=== PATIENT | male | born 1955 | race Caucasian/White ===

== ENCOUNTER 2020-05-04 07:22 | Inpatient (IN) | payer OTHER ==
[2020-04-27 13:07] LABS: BASOPHILS % (AUTO) 0.4 % (0-1); EOSINOPHILS # (AUTO) 0.1 X10'3 (0-0.9); EOSINOPHILS % (AUTO) 1.3 % (0-6); LYMPHOCYTES # (AUTO) 1.4 X10'3 (1.1-4.8); LYMPHOCYTES % (AUTO) 17.3 % (21-51); MEAN CORPUSCULAR HEMOGLOBIN 29.7 PG (27.0-31.0); MEAN CORPUSCULAR HGB CONC 34.3 g/dL (33.0-36.5); MEAN CORPUSCULAR VOLUME 86.7 FL (78-98); MONOCYTES # (AUTO) 0.6 X10'3 (0-0.9); MONOCYTES % (AUTO) 7.6 % (2-12); NEUTROPHILS # (AUTO) 5.9 X10'3 (1.8-7.7); NEUTROPHILS % (AUTO) 73.4 % (42-75); PRE OP HEMATOCRIT 40.6 % (42.0-52.0); PRE OP HEMOGLOBIN 13.9 g/dL (14.0-17.9); PRE OP PLATELET COUNT 207 X10'3 (140-440); RED BLOOD COUNT 4.68 X10'6 (4.70-6.10); RED CELL DISTRIBUTION WIDTH 13.2 % (11.5-14.5)
[2020-04-27 13:20] LABS: PRE OP PROTIME 10.3 SECONDS (9.0-12.0)
[2020-04-27 13:21] LABS: ALBUMIN 3.7 G/DL (3.4-5.0); ALBUMIN/GLOBULIN RATIO 1.1 (1.1-1.5); ALKALINE PHOSPHATASE 82 IU/L (46-116); BLOOD UREA NITROGEN 16 MG/DL (7-18); CALCIUM 8.9 MG/DL (8.5-10.1); CHLORIDE 104 MMOL/L (99-107); CREATININE 1.07 MG/DL (0.60-1.10); PRE OP ALT 17 U/L (30-65); PRE OP ANION GAP 6 (8-16); PRE OP AST 14 U/L (10-37); PRE OP BILIRUB, TOTAL 0.5 MG/DL (0.0-1.0); PRE OP GLUCOSE 84 MG/DL (70-104); PRE OP POTASSIUM 4.1 MMOL/L (3.4-5.1); PRE OP SODIUM 139 MMOL/L (135-145); TOTAL CARBON DIOXIDE 28.9 MMOL/L (24-32); TOTAL PROTEIN 7.2 G/DL (6.4-8.2); eGFR 70 ML/MIN
[~2020-05-04] VITALS: Ht 185.4 cm; Wt 124.9 kg
[2020-05-04] VITALS (21 sets, daily range): BP systolic 117–161; BP diastolic 66–89
[~2020-05-04 07:22] MED LIST: FLUR100T3 PO; PARO10TA85 PO; ceFAZolin 1GM/D5W- ADD-VANTAGE 50 ML IV ONE; ceFAZolin 2gm in dextrose, iso 50 ML IV ONE; famotidine 20mg tablet PO ONE; ringers solution, lacted 1,000 ML IV SCH; scopolamine 1.5mg patch.TD72 TD ONE; tranexamic acid 1gm/0.7% sal. 100 ML IV ONE; vancomycin 1,500 MG in NS 300ml IV soln IV ONE
[2020-05-04] MEDS ORDERED: ROPIVAcaine 0.5% (5mg/ml) 30ml vial ONE ×2 (08:48→10:24)
[2020-05-04] MEDS ORDERED: ketorolac trometh. 30mg/ml inj. ONE (08:48)
[2020-05-04] MEDS ORDERED: sevoflurane 250ml liquid IH ONE (10:21)
[2020-05-04] MEDS ORDERED: fentaNYL/PF 50MCG/1 ML 2ML syringe ONE (10:23)
[2020-05-04] MEDS ORDERED: midazolam 2 mg/2 ml injection ONE (10:23)
[2020-05-04] MEDS ORDERED: dexamethasone sod phosphate 4mg/ml inj. ONE (11:08)
[2020-05-04] MEDS ORDERED: LIDOcaine 2% (20mg/ml) 5ml vial ONE (11:09)
[2020-05-04] MEDS ORDERED: ondansetron/PF 4mg/2ml inj ONE (11:09)
[2020-05-04] MEDS ORDERED: propofol inj 20 ML IV ONE (11:09)
[2020-05-04] MEDS ORDERED: ringers solution, lacted 1,000 ML IV SCH (11:14)
[2020-05-04] MEDS ORDERED: ROPIVAcaine 0.2%/PF PUMP/bolus 550 ML INTERSCALE SCH (11:14)
[2020-05-04] MEDS ORDERED: hydrALAZINE 20mg/ml inj. IV PRN (11:15)
[2020-05-04] MEDS ORDERED: meperidine/PF 25mg/ml syringe IV PRN (11:15)
[2020-05-04] MEDS ORDERED: ondansetron/PF 4mg/2ml inj IV PRN ×2 (11:15→13:00)
[2020-05-04] MEDS ORDERED: morphine 4 MG/ML inj SYRINge IV PRN (11:15)
[2020-05-04] MEDS ORDERED: enalaprilat dihydrate 2.5mg/2ml vial IV PRN (11:15)
[2020-05-04] MEDS ORDERED: morphine 2 MG/ML inj. syringe IV PRN (11:15)
[2020-05-04] MEDS ORDERED: ROPIVAcaine 0.2% (10 MG/5 ML) BOLUS INJECTION INTERSCALE PRN (11:15)
[2020-05-04] MEDS ORDERED: ePHEDrine 50MG/ML INJ. ONE (11:49)
--- NOTE | 2020-05-04 12:45 | NUR ---
Received from OR via ORTHO BED , accompanied by Anesthesiologist and report given by Anesthesiolgist. PT SLEEPY BUT AROUSABLE. DRSG TO LEFT SHOULDER CDI, POWDER PACK IN PLACE. SCD'S ON. IV INFUSING LR.
[2020-05-04] MEDS ORDERED: diphenhydrAMINE 25mg capsule PO PRN ×2 (13:00)
[2020-05-04] MEDS ORDERED: oxyCODONE IR 5mg (immed. release) tablet PO PRN ×2 (13:00)
[2020-05-04] MEDS ORDERED: acetaminophen 325mg tablet PO PRN (13:00)
[2020-05-04] MEDS ORDERED: bisacodyl 10mg suppository rectal RC PRN (13:00)
[2020-05-04] MEDS ORDERED: HYDROmorphone 1 mg/ml syringe IV PRN (13:00)
[2020-05-04] MEDS ORDERED: HYDROmorphone inj. 0.5 MG/0.5 ML DISP.SYRIN IV PRN (13:00)
[2020-05-04] MEDS ORDERED: magnesium hydroxide 30ml (MOM) UD suspension PO PRN (13:00)
[2020-05-04] MEDS ORDERED: proCHLORperazine 10 MG/2 ml inj IV ONE (13:40)
--- NOTE | 2020-05-04 13:50 | NUR ---
PT READY FOR XFER TO ROOM, AWAITING ROOM ON 4TH FLOOR TO BE READY.
--- NOTE | 2020-05-04 14:45 | NUR ---
PT TO 4007 VIA ORTHO BED. REPORT GIVEN TO ALEXANDER BAILON WHO ASSUMED CARE OF PT UPON TRANSPORT. BELONGING BAG X 1 TO ORTHO FLOOR. AWARE OF PT TRANSPORT. PT SHOULDER DRSG REMAINS CDI, POWDER PACK IN PLACE. PT ORIENTED TO ROOM AND CALL LIGHT UPON TRANSFER TO ROOM . BED LOW, LOCKED, RAILS UP X 2, CALL LIGHT IN REACH. PT STATES NAUSEA HAS BASICALLY SUBSIDED. PT DENIES ANY IMMEDIATE NEEDS.
--- NOTE | 2020-05-04 15:26 | NUR ---
RECD REPORT FROM UVALDO TOR[facility]. PT WAS TRANSFERRED TO O/N FLOOR 1450 IN STABLE CONDITION. POST OP VITAL SIGNS STARTED. GAVE PT ICE CHIPS. WILL CONTINUE TO MONITOR.
[2020-05-04] MEDS: ceFAZolin 1GM/D5W- ADD-VANTAGE 50 ML IV SCH (15:52)
[2020-05-04] MEDS: acetaminophen 325mg tablet PO SCH ×2 (15:57→20:18)
[2020-05-04] MEDS ORDERED: tranexamic acid 1gm/0.7% sal. 100 ML IV ONE (16:00)
[2020-05-04] MEDS: potassium cl 20mEq in 1/2 NS 1,000 ML IV SCH (17:08)
--- NOTE | 2020-05-04 18:33 | NUR ---
Problems reprioritized. Patient report given, questions answered & plan of care reviewed with UVALDO Devlin[].
[2020-05-04] MEDS: FLURBIPROFEN 100 MG PO SCH (20:00)
[2020-05-04] MEDS ORDERED: vancomycin/NS 1 GM ADD-VANTAGE 250 ML IV SCH (20:00)
[2020-05-04] MEDS ORDERED: sennosides 8.6mg tablet PO SCH (21:00)
[2020-05-04] MEDS ORDERED: PARoxetine 10mg tablet PO SCH (21:00)
[2020-05-05] MEDS: ceFAZolin 1GM/D5W- ADD-VANTAGE 50 ML IV SCH (01:23)
[2020-05-05] MEDS: acetaminophen 325mg tablet PO SCH ×2 (01:26→08:13)
[2020-05-05] MEDS: potassium cl 20mEq in 1/2 NS 1,000 ML IV SCH ×2 (04:34→04:56)
[2020-05-05 06:00] VITALS: BP 136/79
--- NOTE | 2020-05-05 06:45 | NUR ---
Patient in room ORTHO 4007. I have received report from UVALDO Devlin and had the opportunity to ask questions and assume patient care.
[2020-05-05 07:47] LABS: BASOPHILS % (AUTO) 0 % (0-1); EOSINOPHILS % (AUTO) 0 % (0-6); HEMATOCRIT 37.3 % (42.0-52.0); HEMOGLOBIN 12.8 g/dl (14.0-17.9); LYMPHOCYTES # (AUTO) 0.8 X10'3 (1.1-4.8); LYMPHOCYTES % (AUTO) 4.4 % (21-51); MEAN CORPUSCULAR HEMOGLOBIN 29.9 PG (27.0-31.0); MEAN CORPUSCULAR HGB CONC 34.2 g/dL (33.0-36.5); MEAN CORPUSCULAR VOLUME 87.5 FL (78-98); MEAN PLATELET VOLUME 7.5 FL (7.4-10.4); MONOCYTES # (AUTO) 0.9 X10'3 (0-0.9); MONOCYTES % (AUTO) 5.3 % (2-12); NEUTROPHILS # (AUTO) 15.4 X10'3 (1.8-7.7); NEUTROPHILS % (AUTO) 90.3 % (42-75); PLATELET COUNT 262 X10'3 (140-440); RED BLOOD COUNT 4.26 X10'6 (4.70-6.10); RED CELL DISTRIBUTION WIDTH 13.1 % (11.5-14.5); WHITE BLOOD COUNT 17.1 X10'3 (4.5-11.0)
[2020-05-05] MEDS: FLURBIPROFEN 100 MG PO SCH (08:00)
[2020-05-05 08:24] LABS: ANION GAP 12 (8-16); CHLORIDE 104 MMOL/L (99-107); POTASSIUM 4.7 MMOL/L (3.5-5.1); SODIUM 138 MMOL/L (135-145); TOTAL CARBON DIOXIDE 22.3 MMOL/L (24-32)
[2020-05-05] MEDS ORDERED: aspirin 325mg tablet PO SCH (08:30)
[2020-05-05] MEDS ORDERED: ONQPUMP ADDCANAL (09:00)
[2020-05-05] MEDS ORDERED: ASPI-1 PO (09:00)
[2020-05-05 10:00] VITALS: BP 132/79
--- NOTE | 2020-05-05 11:30 | NUR ---
dc instructions given to pt, questions answered. iv was removed canula intact, no problems. assisted pt with shirt, gathered belongings and wheeled down to in private vehicle in stable condition.
[2020-05-06] MEDS ORDERED: acetaminophen 325mg tablet PO PRN (13:00)
== END 2020-05-05 11:40 | disposition home or self-care (01) | DRG 483 ==
LOC: UNDOADMIN 07:22 → PAS IN 07:22 → EDSTATUS 10:30 → PAS IN 12:56 → EDSTATUS 14:30 → ORTHO 4S 14:50 → PAS IN 14:50
PROVIDERS: ADMIT Orthopaedic Surgery; ATTEND Orthopaedic Surgery
PROC: 0RRK00Z Replacement of Left Shoulder Joint with Reverse Ball and Socket Synthetic Substitute, Open Approach (ICD-10-PCS; principal; 2020-05-04 10:21)
DX: M24.112 Other articular cartilage disorders, left shoulder (principal); M75.102 Unspecified rotator cuff tear or rupture of left shoulder, not specified as traumatic; M19.012 Primary osteoarthritis, left shoulder; D50.0 Iron deficiency anemia secondary to blood loss (chronic); M16.10 Unilateral primary osteoarthritis, unspecified hip; F32.9 Major depressive disorder, single episode, unspecified; X58.XXXA Exposure to other specified factors, initial encounter; Y93.89 Activity, other specified; Y92.89 Other specified places as the place of occurrence of the external cause; Y99.8 Other external cause status; Z20.828 Contact with and (suspected) exposure to other viral communicable diseases
CPT/HCPCS: 36415; 80051; 80053; 82948; 85025; 85610; 85730; 87081; 87635; 97110; 97116; 97161; 97530; G0378; J0690; J0780; J1100; J1885; J2001; J2250; J2405; J2704; J2795; J3010; J3370; J3480; J7040; J7120

== ENCOUNTER 2024-02-04 04:32 | Emergency (ER) | payer OTHER ==
[~2024-02-04] VITALS: Ht 185.4 cm; Wt 127.0 kg
[~2024-02-04 04:32] MED LIST changes: +ASPI-1 PO; +ONQPUMP ADDCANAL; +PARO-153 PO; -PARO10TA85 PO; -ceFAZolin 1GM/D5W- ADD-VANTAGE 50 ML IV ONE; -ceFAZolin 2gm in dextrose, iso 50 ML IV ONE; -famotidine 20mg tablet PO ONE; -ringers solution, lacted 1,000 ML IV SCH; -scopolamine 1.5mg patch.TD72 TD ONE; -tranexamic acid 1gm/0.7% sal. 100 ML IV ONE; -vancomycin 1,500 MG in NS 300ml IV soln IV ONE
[2024-02-04 04:36] VITALS: BP 153/100; PULSE 70; RESP 16; TEMP 98.2; O2SAT 96
[2024-02-04] MEDS: LIDOcaine 4% (40 mg/ml) topical solution 50ml TP ONE (08:39)
[2024-02-04] MEDS ORDERED: CLIN-15 PO (09:07)
[2024-02-04] MEDS: clindamycin 150mg capsule PO ONE (09:13)
[2024-02-04] MEDS: LIDOcaine 1% W/epiNEPHrine 1:100,000 20ml vial IJ ONE (09:15)
== END 2024-02-04 09:31 | disposition home or self-care (01) ==
LOC: ER 04:33
DX: K04.7 Periapical abscess without sinus (principal); E78.00 Pure hypercholesterolemia, unspecified; Z79.82 Long term (current) use of aspirin; Z79.899 Other long term (current) drug therapy; Z79.2 Long term (current) use of antibiotics
CPT/HCPCS: 41800; 99284; A6449